=== PATIENT | male | born 1970 | race Caucasian/White ===

== ENCOUNTER 2021-11-10 15:00 | Emergency (ER) | payer OTHER, MEDICAID ==
[~2021-11-10] VITALS: Ht 172.7 cm; Wt 90.7 kg
[2021-11-10 15:03] VITALS: BP 116/79
--- NOTE | 2021-11-10 15:06 | NUR ---
PEDRO LUIS ALS TAKEN TO BED 3
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
[2021-11-10] MEDS ORDERED: KETOROLAC 30 MG/ML VIAL IVP ONE (15:40)
[2021-11-10] MEDS ORDERED: NACL 0.9% 1,000 ML IV ONE (15:40)
--- NOTE | 2021-11-10 15:56 | NUR ---
Ange strange in [facility] - 11/10/21 at 1608 by [email or web address] GAVE TELEPHONE REPORT TO [facility] NURSE TANG
--- NOTE | 2021-11-10 16:00 | NUR ---
Ange strange in ED - 11/10/21 at 1608 by [email or web address] TRANSFERRED PT TO [facility] UNIT ROOM 105A. PT IN STABLE.
[2021-11-10] MEDS ORDERED: IBUP-2213 PO ×2 (16:01→17:31)
[2021-11-10] MEDS ORDERED: CEPH-588 PO ×2 (16:01→17:31)
[2021-11-10] MEDS ORDERED: cefTRIAXone 1,000 MG VIAL ONE (16:11)
--- NOTE | 2021-11-10 17:38 | NUR ---
Patient discharged with v/s stable. Written and verbal after care instructions given and explained. Patient alert, oriented and verbalized understanding of instructions. Ambulatory with steady gait. All questions addressed prior to discharge. ID band removed. Patient advised to follow up with PMD. Rx of KEFLEX, IBUPROFEN given. BUS PASSESS GIVEN. Patient educated on indication of medication including possible reaction and side effects. Opportunity to ask questions provided and answered.
[2021-11-10 17:39] VITALS: BP 116/79
== END 2021-11-10 17:39 | disposition home or self-care (01) ==
LOC: MED 15:00
DX: L03.115 Cellulitis of right lower limb (principal); Z98.890 Other specified postprocedural states; Z79.899 Other long term (current) drug therapy
CPT/HCPCS: 96365; 96375; 99284; J0696; J1885; J7030